=== PATIENT | male | born 2005 | race Two or more races ===

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

== ENCOUNTER 2024-11-07 11:04 | Emergency (ER) | payer OTHER ==
[~2024-11-07] VITALS: Ht 170.2 cm; Wt 68.0 kg
[2024-11-07 11:15] VITALS: BP 115/61; RESP 16; TEMP 98.5; O2SAT 100
[2024-11-07 11:18] VITALS: PULSE 60; O2SAT 98
[2024-11-07] MEDS ORDERED: SULF1TAB48 MT (18:07)
== END 2024-11-07 18:56 | disposition home or self-care (01) ==
LOC: ER 11:13
DX: L60.0 Ingrowing nail (principal); L03.032 Cellulitis of left toe; Z98.890 Other specified postprocedural states
CPT/HCPCS: 99283